=== PATIENT | male | born 1990 | race Caucasian/White ===

== ENCOUNTER → 2020-06-30 09:39 | Outpatient (BNVA) | payer BC, SELFPAY | PROVIDERS: PCP Internal Medicine; Referring Provider Internal Medicine; Visit Provider Nurse Practitioner Family | DX: I38 Endocarditis, valve unspecified (principal); I07.1 Rheumatic tricuspid insufficiency; Z95.2 Presence of prosthetic heart valve | CPT/HCPCS: 93005 ==

== ENCOUNTER → 2020-07-07 13:05 | Outpatient (REF) | payer BC, SELFPAY ==
--- NOTE | 2020-07-07 13:09 | CA_ITS ---
Transthoracic Echocardiogram Patient (Last, First, Middle): Irwin Stoll, Gender: Male Date of : 1990 Age: 30 Procedure Date: 07/07/2020 Procedure Type: Transthoracic Echocardiogram Location: OP Height: 172.72 cm Weight: 90.72 kg BSA: 2.04 m2 Heart Rate: bpm BP: 122 / 60 mmHg Executive Vice President And Chief Financial Officer: MONICA Kelly MD: Lis Ash TANK TRUCK DRIVER-Tamera Private Security Guard: Edwin Michaels MD Symptoms: Z98.890 - Other specified postprocedural states Study Quality: Good ECG Rhythm: Sinus Conclusions: - 1. Normal LV systolic and diastolic function 2. Mildly increased right ventricular and right atrial size 3. Good tricuspid valve repair with trace tricuspid regurgitation 4. Moderate pericardial effusion loculated near the left ventricle mostly without any evidence of tamponade Findings Left Ventricle Normal left ventricular size, thickness, and systolic function. The visually estimated ejection fraction is between 60-65%. Diastolic function is normal for age. Right Ventricle Mildly increased right ventricular cavity size. There is low normal right ventricular systolic function. Atria The left atrium is normal in size. There is no evidence of interatrial shunt. The right atrium is mildly dilated. Aortic Valve Normal aortic valve structure and function. There is no aortic valve stenosis. There is no aortic valve regurgitation. Mitral Valve Normal mitral valve structure and function. There is trace mitral valve regurgitation. There is no mitral valve stenosis. Pulmonic Valve The pulmonic valve is likely normal. Tricuspid Valve There is moderate anterior tricuspid leaflet thickening. There is trace tricuspid valve regurgitation. The right ventricular systolic pressure is normal. tricuspid ring in place Great Vessels All visible segments of the aorta are normal in size. The pulmonary artery was not well visualized. Venous The inferior vena cava is normal in size and collapses greater than 50% with inspiration. Pericardium/Pleural There is a moderate loculated pericardial effusion overlying the left ventricle. There are no definitive echocardiographic findings of tamponade physiology. Measurements 2D Linear Measurements IVSd: 1.15 0.6-0.9/0.6-1.0 cm LVIDd: 4.87 3.9-5.3/4.2-5.9 cm LVIDd Index: 2.39 2.4-3.2/2.2-3.1 cm/m2 LVIDs: 3.41 2.0-3.6 cm LVPWd: 1.06 0.7-1.1 cm Ao Root: 3.00 2.1-3.5 cm LA Diam: 3.90 2.7-3.8/3.0-4.0 cm LAIDs Index: 1.91 1.5-2.3 cm/m2 LV Mass: 248.97 67-162/88-224 g LV Mass Index: 122.04 43-95/49-115 g/m2 LVOT Diam: 2.30 3.0+(-)1.3 cm Mitral Valve MV Pk E: 0.69 MV PK A: 0.44 MV Decel Time: 194.00 E/A: 1.60 E'Lateral: 14.10 E'Medial: 11.20 E/E' Med: 6.20 E/E' Lat: 4.90 PHT: 57.00 MVA PHT: 3.86 Decel [place]: 3.56 Aortic Valve AoV Pk Go: 1.12 AoV Mn Go: 0.74 AoV VTI: 0.24 AoV Pk Grad: 5.00 Aov Mn Grad: 3.00 JOHNNIE Cont.VTI: 3.24 LVOT LVOT Pk Go: 1.06 LVOT Mn Go: 0.61 LVOT VTI: 0.19 LVOT Pk Grad: 4.00 LVOT Mn Grad: 2.00 LVOT Diam: 2.30 LVOT Area: 4.15 Diastolic Function MV Pk E: 0.69 MV Pk A: 0.44 E/A: 1.60 E'Medial: 11.20 E/E' Med: 6.20 E' Laterial: 14.10 E/E' Lat: 4.90 Tricuspid Valve TV Pk Go: 0.82 TV Mn Go: 0.49 TV Pk Grad: 3.00 TV Mn Grad: 1.00 TR Pk Go: 1.84 TR Pk Grad: 14.00 RA Press: 3.00 RVSP: 17.00 Great Vessels Aorta Ao Root-2D: 3.00 2.0-3.7 cm Ao Asc: 2.60 2.1-3.4 cm Pulmonary Valve PV Pk Go: 0.96 Peak PV Grad: 4.00 Updated in Other Vendor System with Status of Final Edwin Michaels MD electronically signed on 07/08/2020 1:32:13 PM with status of Final
== END ==
LOC: HO.CARD 13:05
PROVIDERS: PCP Internal Medicine; Visit Provider Nurse Practitioner Family
DX: I07.1 Rheumatic tricuspid insufficiency (principal); Z98.890 Other specified postprocedural states
CPT/HCPCS: 93306

== ENCOUNTER → 2020-08-03 11:34 | Outpatient (REF) | payer BC, SELFPAY ==
--- NOTE | 2020-08-03 11:37 | CA_ITS ---
Transthoracic Echocardiogram Patient (Last, First, Middle): Irwin Stoll, Gender: Male Date of : 1990 Age: 30 Procedure Date: 08/03/2020 Procedure Type: Transthoracic Echocardiogram Location: OP Height: 172.72 cm Weight: 90.72 kg BSA: 2.04 m2 Heart Rate: bpm BP: 114 / 72 mmHg Assembled Wood Products Repairer: MAYA Kelly MD: Lis Ash [place] TECHNICIAN-C Dress Finisher: Edwin Michaels MD Symptoms: I31.3 - Pericardial effusion (noninflammatory) Conclusions: - Trivial pericardial effusion is noted Findings Left Ventricle Moderately increased left ventricular cavity size. The left ventricular systolic function is normal. The visually estimated ejection fraction is between 55-60%. Pericardium/Pleural There is a trivial pericardial effusion. Prior Study Comparison Changes noted compared to prior study dated: 07/07/2020. Pericardial effusion have improved Measurements 2D Linear Measurements LVIDd: 5.58 3.9-5.3/4.2-5.9 cm LVIDd Index: 2.74 2.4-3.2/2.2-3.1 cm/m2 LVIDs: 4.68 2.0-3.6 cm 2D Systolic Function EF 4C: 46.70 >55% EF 2C: 35.60 >55% Mitral Valve MV Pk E: 0.53 MV PK A: 0.44 MV Decel Time: 223.00 E/A: 1.20 E'Lateral: 12.90 E'Medial: 8.49 E/E' Med: 6.20 E/E' Lat: 4.10 Diastolic Function MV Pk E: 0.53 MV Pk A: 0.44 E/A: 1.20 E'Medial: 8.49 E/E' Med: 6.20 E' Laterial: 12.90 E/E' Lat: 4.10 Updated in Other Vendor System with Status of Final Edwin Michaels MD electronically signed on 08/04/2020 4:35:46 PM with status of Final
== END ==
LOC: HO.CARD 11:34
PROVIDERS: PCP Internal Medicine; Visit Provider Nurse Practitioner Family
DX: I31.3 Pericardial effusion (noninflammatory) (principal)
CPT/HCPCS: 93308

== ENCOUNTER → 2020-08-12 09:05 | Outpatient (BNVA) | payer BC, SELFPAY | PROVIDERS: PCP Internal Medicine; Visit Provider Internal Medicine Cardiovascular Disease | DX: Z76.89 Persons encountering health services in other specified circumstances (principal) ==

== ENCOUNTER → 2021-02-23 15:05 | Outpatient (BNVA) | payer OTHER, SELFPAY | PROVIDERS: PCP Internal Medicine; Referring Provider Internal Medicine; Visit Provider Nurse Practitioner Family | DX: R53.83 Other fatigue (principal); Z98.890 Other specified postprocedural states | CPT/HCPCS: 99212 ==

== ENCOUNTER 2021-02-28 14:37 | Outpatient (REF) | payer OTHER, SELFPAY ==
[2021-02-28 15:36] LABS: Hemoglobin 14.1 g/dl (14.0-18.0); Mean Corpuscular HGB Conc 34.4 g/dl (31.0-36.0); Mean Corpuscular Hemoglobin 30.8 pg (27.0-33.0); Mean Corpuscular Volume 89.5 fL (80-98); Mean Platelet Volume 10.7 fL (9.4-12.4); Platelet Count 281 X10*3/uL (160-400); Red Blood Count 4.58 X10*6/uL (4.60-5.80); Red Cell Distribution Width 11.6 % (11.0-16.0)
[2021-02-28 15:48] LABS: Anion Gap 15 (12-20); Blood Urea Nitrogen 19 mg/dL (9-16); Calcium 10.3 mg/dL (8.4-10.2); Carbon Dioxide 26 mmol/L (22-29); Chloride 100 mmol/L (96-108); Estimated Glomerular Filt Rate 41; Glucose Random 78 mg/dL (60-115); Magnesium 1.9 mg/dL (1.6-2.6); Potassium 3.9 mmol/L (3.3-5.1); Sodium 137 mmol/L (135-145)
[2021-02-28 16:10] LABS: TSH reflex Free T4 1.89 uIU/mL (0.32-4.0)
[2021-02-28 16:25] LABS: Erythrocyte Sedimentation Rate 5 MM/HR (0-15)
== END 2021-02-28 14:38 | disposition home or self-care (01) ==
LOC: HO.LAB 14:37
PROVIDERS: PCP Internal Medicine; Visit Provider Internal Medicine Cardiovascular Disease
DX: I50.30 Unspecified diastolic (congestive) heart failure (principal); Z98.890 Other specified postprocedural states
CPT/HCPCS: 36415; 80048; 83735; 84443; 85027; 85652

== ENCOUNTER → 2021-05-26 11:23 | Outpatient (BNVA) | payer OTHER, SELFPAY | PROVIDERS: Visit Provider Nurse Practitioner Psychiatric/Mental Health | DX: Z51.81 Encounter for therapeutic drug level monitoring (principal); F11.20 Opioid dependence, uncomplicated | CPT/HCPCS: 80305; 99212 ==

== ENCOUNTER → 2022-02-07 07:34 | Outpatient (REF) | payer OTHER, SELFPAY ==
--- NOTE | 2022-02-07 07:37 | CA_ITS ---
Transthoracic Echocardiogram Patient (Last, First, Middle): Irwin Stoll, Gender: Male Date of : 1990 Age: 32 Procedure Date: 02/07/2022 Procedure Type: Transthoracic Echocardiogram Location: OP Height: 172.72 cm Weight: 92.53 kg BSA: 2.06 m2 Heart Rate: bpm BP: 132 / 74 mmHg House Cleaner: JEF Referring MD: Edwin Michaels MD Symptoms: Z98.890 - Other specified postprocedural states Study Quality: Adequate ECG Rhythm: Sinus Conclusions: - The left ventricular systolic function is normal. The visually estimated ejection fraction is between 55-60%. - There is moderately decreased right ventricular systolic function. - s/p Tricuspid valve repair with normal function. Findings Left Ventricle Normal left ventricular cavity size. There is normal left ventricular wall thickness. The left ventricular systolic function is normal. The visually estimated ejection fraction is between 55-60%. There is no evidence of regional wall motion abnormalities. Diastolic function is normal for age. LV peak GLS -18.1%. Right Ventricle Normal right ventricular cavity size. There is moderately decreased right ventricular systolic function. Atria Both atria are normal in size. Aortic Valve There is a normal trileaflet aortic valve. There is no aortic valve stenosis. There is no aortic valve regurgitation. Mitral Valve The mitral valve appears normal. There is trace mitral valve regurgitation. There is no mitral valve stenosis. Pulmonic Valve The pulmonic valve is likely normal. Tricuspid Valve There is no tricuspid valve regurgitation. s/p tricuspid annuloplasty ring. Mean gradient across the tricuspid valve 3 mm Hg at 71/Min. Great Vessels The aortic annulus, sinuses of valsalva, and asc aorta are normal in size. Venous The inferior vena cava is normal in size and collapses greater than 50% with inspiration. Pericardium/Pleural There is no evidence of pericardial effusion. Prior Study Comparison No significant change compared to prior study dated: 08/03/2020. Measurements 2D Linear Measurements IVSd: 1.01 0.6-0.9/0.6-1.0 cm LVIDd: 4.85 3.9-5.3/4.2-5.9 cm LVIDd Index: 2.35 2.4-3.2/2.2-3.1 cm/m2 LVIDs: 3.49 2.0-3.6 cm LVPWd: 0.73 0.7-1.1 cm LA Diam: 3.70 2.7-3.8/3.0-4.0 cm LAIDs Index: 1.80 1.5-2.3 cm/m2 LV Mass: 179.40 67-162/88-224 g LV Mass Index: 87.09 43-95/49-115 g/m2 2D Systolic Function EF 4C: 53.70 >55% EF 2C: 51.20 >55% Mitral Valve MV Pk E: 0.82 MV PK A: 0.70 MV Decel Time: 159.00 E/A: 1.20 E'Lateral: 15.20 E'Medial: 7.72 E/E' Med: 10.70 E/E' Lat: 5.40 PHT: 47.00 MVA PHT: 4.68 Decel [place]: 5.16 Aortic Valve AoV Pk Go: 1.11 AoV Mn Go: 0.79 AoV VTI: 0.21 AoV Pk Grad: 5.00 Aov Mn Grad: 3.00 LVOT LVOT Pk Go: 1.25 LVOT Mn Go: 0.80 LVOT VTI: 0.23 LVOT Pk Grad: 6.00 LVOT Mn Grad: 3.00 Diastolic Function MV Pk E: 0.82 MV Pk A: 0.70 E/A: 1.20 E'Medial: 7.72 E/E' Med: 10.70 E' Laterial: 15.20 E/E' Lat: 5.40 Right Ventricle TAPSE (mm): 13.10 TVS' Go: 10.60 Tricuspid Valve TV Pk Go: 0.87 TV Mn Go: 0.58 TV Pk Grad: 3.00 TV Mn Grad: 2.00 RA Press: 3.00 Great Vessels Aorta Sinus of Valsalva: 3.06 2.0-3.[address] [place]: 2.77 1.7-3.4 cm Ao Asc: 2.80 2.1-3.4 cm Updated in Other Vendor System with Status of Final Norm Garcia MD electronically signed on 02/10/2022 11:57:57 AM with status of Final
== END ==
LOC: HO.CARD 07:34
PROVIDERS: PCP Internal Medicine; Visit Provider Internal Medicine Cardiovascular Disease
DX: Z98.890 Other specified postprocedural states (principal)
CPT/HCPCS: 93306; 93356

== ENCOUNTER → 2024-07-23 09:08 | Outpatient (REF) | payer OTHER, SELFPAY ==
--- NOTE | 2024-07-23 09:11 | CA_ITS ---
Transthoracic Echocardiogram Patient (Last, First, Middle): Irwin Stoll, Gender: Male Date of : 1990 Age: 34 Procedure Date: 07/23/2024 Procedure Type: Transthoracic Echocardiogram Location: OP Height: 172.72 cm Weight: 88.45 kg BSA: 2.02 m2 Heart Rate: bpm BP: 120 / 80 mmHg Spool Worker: KARL Referring MD: Edwin Michaels MD Service Team Leader: Edwin Michaels MD Symptoms: I36.1 - Nonrheumatic tricuspid (valve) insufficiency Study Quality: Adequate ECG Rhythm: Sinus Conclusions: - 1. Normal LV ejection fraction 55-60% 2. Mildly dilated right ventricle with normal systolic function 3. Good tricuspid valve repair with normal cardiac valvular Dopplers 4. Normal RV systolic pressure 5. No gross pericardial effusion Findings Left Ventricle Normal left ventricular size, thickness, and systolic function. The visually estimated ejection fraction is between 55-60%. Spectral Doppler is indicative of a normal filling pattern. Peak GLS is -18.7%, within normal limits Right Ventricle Mildly increased right ventricular cavity size. There is normal right ventricular systolic function. Atria The left atrium is normal in size. Interatrial shunt cannot be excluded. The right atrium is normal in size. Aortic Valve Normal aortic valve structure and function. There is no aortic valve stenosis. There is no aortic valve regurgitation. Mitral Valve Normal mitral valve structure and function. There is trace mitral valve regurgitation. There is no mitral valve stenosis. Pulmonic Valve The pulmonic valve is likely normal. There is trace pulmonic valve regurgitation. Tricuspid Valve There is mild anterior, mild posterior, and moderate septal tricuspid leaflet thickening. There is trace tricuspid valve regurgitation. overall good tricuspid repair noted Great Vessels All visible segments of the aorta are normal in size. The pulmonary artery was not well visualized. Venous The inferior vena cava is normal in size and collapses greater than 50% with inspiration. Pericardium/Pleural There is no evidence of pericardial effusion. Prior Study Comparison No significant change compared to prior study dated: 02/07/2022. Measurements 2D Linear Measurements IVSd: 0.95 0.6-0.9/0.6-1.0 cm LVIDd: 4.75 3.9-5.3/4.2-5.9 cm LVIDd Index: 2.35 2.4-3.2/2.2-3.1 cm/m2 LVIDs: 3.14 2.0-3.6 cm LVPWd: 1.06 0.7-1.1 cm LA Diam: 3.70 2.7-3.8/3.0-4.0 cm LAIDs Index: 1.83 1.5-2.3 cm/m2 LV Mass: 209.67 67-162/88-224 g LV Mass Index: 103.80 43-95/49-115 g/m2 LVOT Diam: 2.20 3.0+(-)1.3 cm 2D Systolic Function EF 4C: 60.70 >55% EF 2C: 59.10 >55% EF BiP: 59.60 >55% Mitral Valve MV Pk E: 0.60 MV PK A: 0.49 MV Decel Time: 240.00 E/A: 1.20 E'Lateral: 13.50 E'Medial: 9.25 E/E' Med: 6.50 E/E' Lat: 4.50 PHT: 70.00 MVA PHT: 3.14 Decel [place]: 2.52 Aortic Valve AoV Pk Go: 1.30 AoV Mn Go: 0.98 AoV VTI: 0.27 AoV Pk Grad: 7.00 Aov Mn Grad: 4.00 JOHNNIE Cont.VTI: 3.14 LVOT LVOT Pk Go: 1.06 LVOT Mn Go: 0.75 LVOT VTI: 0.22 LVOT Pk Grad: 4.00 LVOT Mn Grad: 3.00 LVOT Diam: 2.20 LVOT Area: 3.80 Diastolic Function MV Pk E: 0.60 MV Pk A: 0.49 E/A: 1.20 E'Medial: 9.25 E/E' Med: 6.50 E' Laterial: 13.50 E/E' Lat: 4.50 Right Ventricle TAPSE (mm): 22.80 TVS' Go: 10.60 Tricuspid Valve TV Pk Go: 1.23 TV Mn Go: 0.76 TV Pk Grad: 6.00 TV Mn Grad: 3.00 TR Pk Go: 1.93 TR Pk Grad: 15.00 RA Press: 3.00 RVSP: 18.00 Great Vessels Aorta Sinus of Valsalva: 3.29 2.0-3.[address] [place]: 2.36 1.7-3.4 cm Ao Asc: 2.70 2.1-3.4 cm Ao Arch: 2.50 Updated in Other Vendor System with Status of Final Edwin Michaels MD electronically signed on 07/24/2024 3:11:00 PM with status of Final
== END ==
LOC: HO.CARD 09:08
PROVIDERS: PCP Internal Medicine; Visit Provider Internal Medicine Cardiovascular Disease
DX: I36.1 Nonrheumatic tricuspid (valve) insufficiency (principal); I31.31 Malignant pericardial effusion in diseases classified elsewhere; Z98.890 Other specified postprocedural states
CPT/HCPCS: 93306; 93356

== ENCOUNTER → 2024-07-23 09:11 | Outpatient (BNV) | payer OTHER, SELFPAY | PROVIDERS: PCP Internal Medicine; Visit Provider Internal Medicine Cardiovascular Disease | DX: I36.8 Other nonrheumatic tricuspid valve disorders (principal); Z98.890 Other specified postprocedural states | CPT/HCPCS: 93306; 93356 ==

== ENCOUNTER → 2024-08-29 13:30 | Outpatient (REF) | payer OTHER, SELFPAY ==
--- NOTE | 2024-08-29 13:39 | ECG_ITS ---
Test Reason : qtc check Blood Pressure : / mmHG Vent. Rate : 077 BPM Atrial Rate : 077 BPM P-R Int : 142 ms QRS Dur : 092 ms QT Int : 334 ms P-R-T Axes : 069 039 059 degrees QTc Int : 377 ms Normal sinus rhythm with sinus arrhythmia Normal ECG No previous ECGs available Referred By: Oskar Maynard Electronically Signed By:JULIENNE YOUNG MD
== END ==
LOC: HO.CARD 13:30
PROVIDERS: PCP Internal Medicine; Visit Provider Physical Medicine & Rehabilitation
DX: G89.4 Chronic pain syndrome (principal); F11.20 Opioid dependence, uncomplicated
CPT/HCPCS: 93005

== ENCOUNTER → 2024-08-29 13:39 | Outpatient (BNV) | payer OTHER, SELFPAY | PROVIDERS: PCP Internal Medicine; Visit Provider Internal Medicine Cardiovascular Disease | DX: Z13.6 Encounter for screening for cardiovascular disorders (principal) | CPT/HCPCS: 93010 ==